=== PATIENT | male | born 1975 | race Hispanic/Latino ===

== ENCOUNTER 2018-10-14 15:52 | Emergency (ER) | payer SELFPAY ==
[2018-10-14] MEDS ORDERED: CLEOCIN300 MG PO (16:33)
[2018-10-14 16:40] VITALS: BP 133/86
== END 2018-10-14 16:40 | disposition home or self-care (01) | DRG 603 ==
LOC: ED 15:52
DX: L03.115 Cellulitis of right lower limb (principal); S81.831A Puncture wound without foreign body, right lower leg, initial encounter; W60.XXXA Contact with nonvenomous plant thorns and spines and sharp leaves, initial encounter